=== PATIENT | male | born 1960 | race Caucasian/White ===

== ENCOUNTER 2020-07-07 11:46 | Emergency (ER) | payer OTHER, SELFPAY ==
[2020-07-07] MEDS ORDERED: Lidocaine 2% w/Epinephrine 1:200K 20 ML VIAL ONE (12:00)
[2020-07-07] MEDS ORDERED: Adacel (T-DAP) 0.5 ML SYRINGE ONE (12:00)
--- NOTE | 2020-07-07 13:09 | RAD ---
RADIOGRAPH LEFT HAND 3VIEWS: DATE: 07/07/2020 HISTORY: 59-year-old male status post acute traumatic injury to left hand FINDINGS: There is no dislocation. No fracture is identified. Moderate DJD at first CMC. Multiple tiny focal marilyn cencies in soft tissues between second and third MCPs. Broader region of soft tissue lucency peripheral to the fifth metacarpal. Mild DJD at second MCP with mild subluxation, presumably chronic. Moderate DJD at third MCP with higher grade joint space narrowing. Subchondral cysts at third metacarpal head. IMPRESSION: 1. No fracture. 2. Soft tissue injuries. 3. Moderate osteoarthrosis at first carpometacarpal joint, and the second and third metacarpophalange al joints.
== END 2020-07-07 19:43 | disposition home or self-care (01) ==
LOC: BURERS 11:46
DX: S51.811A Laceration without foreign body of right forearm, initial encounter (principal); S61.412A Laceration without foreign body of left hand, initial encounter; I10 Essential (primary) hypertension; W26.8XXA Contact with other sharp object(s), not elsewhere classified, initial encounter
CPT/HCPCS: 12005; 90471; 90715

== ENCOUNTER 2023-04-08 14:05 | Emergency (ER) | payer OTHER, BC | END 2023-04-08 14:39 | disposition home or self-care (01) | LOC: BURERS 14:05 | DX: S31.815A Open bite of right buttock, initial encounter (principal); W54.0XXA Bitten by dog, initial encounter | CPT/HCPCS: 99283 ==